=== PATIENT | female | born 1960 | race Caucasian/White ===

== ENCOUNTER 2021-01-04 10:51 | Emergency (ER) | payer BC, SELFPAY ==
[2021-01-04 11:45] VITALS: BP 146/81; PULSE 71; RESP 18; TEMP 36.8; O2SAT 98; BMI 37.2
--- NOTE | 2021-01-04 12:26 | HMH.EDUTC ---
[facility] [place] Disposition Clinical Impression: Encounter for laboratory testing for COVID-19 virus Disposition: Home, Self-Care Condition on Discharge: Good Instructions: DI for COVID-19 (Suspected or Confirmed ), Coronavirus Disease 2019, Preventing the Spread of Coronavirus Discharge Instructions Additional Instructions: *Monitor Temp, Over the counter Motrin or Tylenol as directed/as needed Tylenol every 4 hours and Motrin every 6 hours (as long as your family doctor has told you that you can take it) for fever or pain. and straight to ER if unable to lower temp less than 101.0 after medication given Follow up IMMEDIATELY for new or worsening symptoms or no Noticeable improvement over the next 48-72 hours. 911 for difficulty breathing or swallowing You were tested for today for COVID19 your test result should be back in the next 24-48 hours, you may call to the [facility] to see if your test results are back in the next 48 hours [phone] [facility] hours are 9am-9pm You was given a handout with instructions for Self Quarantine and Self isolation for while you wait on test results and what to do if they are positive If you are positive the Health Dept will be contacting you also Make sure to take your Vitamins Vit. C Vit D and Zinc if you can take them Referrals: Kala Maya APRN [Primary Care Provider] - As needed Time of Disposition: 12:31 Medical Decision Making - Ha Inquiry Pt receiving controlled substance: No Ha was queried for this patient: No Vital Signs: 01/04/21 11:45 Temperature 98.2 F Temperature Source Oral Pulse Rate [Right Brachial] 71 Respiratory Rate 18 Blood Pressure [Right Arm] 146/81 H Blood Pressure Mean [Right Arm] 102 Blood Pressure Source [Right Arm] Automatic Cuff Blood Pressure Position [Right Arm] Sitting 02 Sat by Pulse Oximetry 98 Oxygen Delivery Method Room Air Orders (Tests/Meds): ORDERS Category Date Time Status Covid-19 Nasal PCR ([facility]) Routine Lab 01/04/21 11:51 Ordered [facility] HPI - General Stated complaint: Covid test Time Seen by Provider: 01/04/21 12:26 Mode of Arrival: Ambulatory Source of Information: Patient Limitations: No Limitations Description of Symptoms (Recalled from Triage Doc. by RN): PATIENT NEEDS COVID TEST BEFORE COLONOSCOPY HEENT Symptoms (Recalled from RN notes): No Resp Symptoms (Recalled from RN notes): No Skin Symptoms (Recalled from RN notes): No MS Symptoms (Recalled from RN notes): No Functional Status (Recalled from RN notes): WNL - History of Present Illness Provider Complaint: Patient states that she has to have a COVID test for a procedure that she is having done Denies any symptoms Denies exposure - Related Data Home Medications Medication Instructions Recorded Confirmed Cholecalciferol (Vitamin D3) 10 mcg PO DAILY 01/01/21 01/01/21 [Vitamin D3] Fluoxetine HCl 40 mg PO DAILY 01/01/21 01/01/21 Levothyroxine Sodium 100 mcg PO DAILY 01/01/21 01/01/21 [Levothyroxine 100mcg (0.1MG) Tab] Rosuvastatin Calcium [Crestor 10mg 10 mg PO DAILY 01/01/21 01/01/21 Tablets] hydroCHLOROthiazide [HCTZ 12.5mg 12.5 mg PO DAILY 01/01/21 01/01/21 cap] Allergies Allergy/AdvReac Type Severity Reaction Status Date / Time codeine Allergy Verified 01/01/21 09:39 Penicillins Allergy Verified 01/01/21 09:39 - Worker's Comp Is this a Worker's Comp case?: No [facility] History - Hepatitis A Screen Drug use history?: No High risk sexual behaviors?: No History of sexually transmitted infection?: No Currently employed?: No Childcare worker?: No Do you have indoor plumbing?: Yes Do you have electricity?: Yes Attestation statement:: This patient has been screened for Hepatitis A risk factors. I have reviewed the patient's past medical history: Yes Medical History: Denies:: Cancer, Diabetes Mellitus Type 1, Diabetes Mellitus Type 2, Internal Pacemaker, MRSA Laterality Cases: Bilateral: Tonsillectomy Other Surgeries: No:
[2021-01-04 12:31] VITALS: BP 146/81; PULSE 71; RESP 18; TEMP 36.8; O2SAT 98
== END 2021-01-04 12:33 | disposition home or self-care (01) ==
PROVIDERS: Emergency Provider Nurse Practitioner; PCP Nurse Practitioner Family
DX: Z11.52 Encounter for screening for COVID-19 (principal)
CPT/HCPCS: 99202; G0463; U0003

== ENCOUNTER 2021-01-06 10:00 | Day surgery (SDC) | payer BC, SELFPAY ==
[2021-01-01 09:41] VITALS: BMI 40.1
[2021-01-06 10:15] VITALS: BP 156/68; PULSE 80; RESP 20; TEMP 36.4; O2SAT 96
[2021-01-06 11:31] VITALS: O2SAT 98
--- NOTE | 2021-01-06 12:09 | P.PCN_ITS ---
[facility] Procedure Note Procedure Note:: Colonoscopy Procedure Report: Colonoscopy with cold snare polypectomy Endoscopist: Se Medeiros II, MD Referring physician: ALEXIS Arshad Date of Procedure: January 06, 2021 Equipment: Olympus 190 variable stiffness pediatric colonoscope Sedation: MAC sedation Indication: Mrs. Green is a 60-year-old female who is here for routine screening colonoscopy. She did have a colonoscopy at age 49 with me that was normal. She does take combined MiraLAX plus Metamucil daily. She reports no abdominal pain, in her bowel habits or rectal bleeding. She reports no family history of colon cancer. Procedure: Prior to the procedure, a history and physical exam was performed, and patient's medications and allergies were reviewed. The risks, benefits and alternatives of the sedation and procedure were discussed with the patient. All questions were answered and informed consent was obtained. The patient was brought to the procedure room. Patient identification and proposed procedure were verified by the physician and the nurse. The patient was placed in a left lateral decubitus position and the scope was passed under direct vision. Throughout the procedure, the patient's blood pressure, pulse, and oxygen saturations were monitored continuously. The colonoscopy was accomplished without difficulty. The patient tolerated the procedure well. Findings: On digital rectal examination there was normal rectal tone. There were no external hemorrhoids. The colonoscope was introduced through the anal canal to the rectum and advanced to the cecum. The ileocecal valve and appendiceal orifice were identified. The scope was advanced a short distance into the ileum which appeared grossly normal. The scope was then withdrawn into the colon. There were 4 diminutive colon polyps (ascending x1 (4 mm), descending x2 (3 and 4 mm) and sigmoid x1 (4 mm)) which were all removed via cold snare polypectomy. The remaining cecum, ascending, transverse, descending, sigmoid and rectum were grossly normal. There were no mucosal abnormalities identified. Upon retroflexion within the rectum there were grade 1-2 internal hemorrhoids.The preparation was excellent throughout with [place] Preparation Score of 9. The cecal time was 12 minutes. Impression: 1. Diminutive colonic polyps x4 2. Grade 1-2 internal hemorrhoids Plan: I will follow up the polyp pathology and recommend repeat colonoscopy again in 5 years based upon the adenomatous polyp histology. I would encourage bulking fiber supplementation on a long-term daily maintenance basis.
[2021-01-06 12:10] VITALS: BP 99/63; PULSE 68; RESP 18; TEMP 36.8; O2SAT 93
--- NOTE | 2021-01-06 12:18 | HMH.ANESCL ---
[facility] Anesthesia Checklist - Structural Data Admitted From: Home Planned Operative Procedure/s: colonoscopy Consent for Planned Operative Procedure(s) Verified: Yes - Airway Assessment C-Spine Mobility Assessed: Yes TMJ Mobility Assessed: Yes Dentition: Good Dentition - Neurological Assessment Level of Consciousness: Awake, Alert, Appropriate - Anesthesia Plan Anesthesia Risk discussed: Yes Anesthesia Plan: Verified ASA Class: II Anesthesia Type: MAC [facility] History I have reviewed the patient's past medical history: Yes Medical History: Reports:: Hyperlipidemia, Hypertension Denies:: Cancer, Diabetes Mellitus Type 1, Diabetes Mellitus Type 2, Internal Pacemaker, MRSA, Seizures *Have you ever received a pneumonia vaccine?: No *Have you received a flu vaccine this season?: No Anesthesia experience/problems:: none Laterality Cases: Bilateral: Tonsillectomy Other Surgeries: No: Pacemaker Amputation: No - *Social History Last grade of school completed: Advanced degree Smoking Status: Never smoker Alcohol Intake: never Substance Use Type: denies use *Occupational Status:: employed Housing: house Household Members: spouse *Travel in the last 8 weeks: None Family Hx:: Cancer
[2021-01-06 12:20] VITALS: BP 122/75; PULSE 69; RESP 18; O2SAT 97
[2021-01-06 12:30] VITALS: BP 106/61; PULSE 70; RESP 18; O2SAT 97
[2021-01-06 12:55] VITALS: BP 124/68; PULSE 64; RESP 18; O2SAT 98
== END 2021-01-06 12:58 | disposition home or self-care (01) ==
LOC: OUTP 10:02
PROVIDERS: PCP Nurse Practitioner Family; Visit Provider Internal Medicine Gastroenterology
PROC: 0DJD8ZZ Inspection of Lower Intestinal Tract, Via Natural or Artificial Opening Endoscopic (ICD-10-PCS; CPT 45378; principal; 2021-01-06 11:00)
DX: Z12.11 Encounter for screening for malignant neoplasm of colon (principal); K63.5 Polyp of colon; K64.0 First degree hemorrhoids; E78.5 Hyperlipidemia, unspecified; I10 Essential (primary) hypertension; Z80.9 Family history of malignant neoplasm, unspecified; Z88.0 Allergy status to penicillin; Z88.6 Allergy status to analgesic agent; Z79.899 Other long term (current) drug therapy
CPT/HCPCS: 45385

== ENCOUNTER 2025-01-18 09:01 | Outpatient (CLI) | payer MEDICARE, BC, SELFPAY ==
--- NOTE | 2025-01-18 09:05 | XR_ITS ---
FINAL REPORT CLINICAL HISTORY: SCREENING COMPARISON: None FINDINGS: Using L1-4, the bone mineral density of the spine is 1.373 g/cm2, corresponding to T-score of 3.0, within normal limits. Using the left forearm, the bone mineral density of the one third is 0.657 g/cm2, corresponding to a T-score of -0.6, within normal limit. Using the right forearm, the bone mineral density of the one third is 0.752 g/cm2, corresponding to a T-score of 1.0, within normal limits. NOTE: T-score: Standard deviation compared with peak bone mass of young adult mean. *Following the recommendations of the International Society of Bone densitometry, classification of hip BMD is based on the lower of two T-scores; total hip or femoral neck. IMPRESSION: Normal bone mineral density of the lumbar spine and hips. Reviewed, Interpreted and Dictated by Hernando Villeda MD Transcribed by Lorri Mijares Authenticated and [facility]
--- OUTSIDE RECORDS SUMMARY | 2025-01-18 09:05 | XMS_ITS | Clinical Summary ---
Author Organization [facility] Address [address] [place] [address] Care Team Providers Care Gelatin Maker Utility Name Role Phone Loren Cuellar BROOKE Primary Care Provider + [phone] Allergies Active Allergy Reactions Criticality Noted Date Comments Codeine Other (See Comments),Rash Low 06/18/2021 Penicillins Other (See Comments) ,Rash,Unknown (See Comments) Low 10/12/2012 Povidone Iodine Rash Low 05/21/2021 Medications levothyroxine (SYNTHROID, LEVOTHROID) 100 MCG tablet Take 1 tablet by mouth Daily. 07/23/2022 Active hydroCHLOROthia zide (MICROZIDE) 12.5 MG capsule Take 1 capsule by mouth Daily. 07/23/2022 Active FLUoxetine (PROzac) 40 MG capsule 1 capsule Daily. 07/23/2022 Active guaiFENesin (Mucinex) 600 MG 12 hr tablet Take 2 tablets by mouth 2 (Two) Times a Day. 180 tablet 1 10/07/2023 Active rosuvastatin (CRESTOR) 10 MG tabletIndicatio ns:Hyperlipidem ia LDL goal <100 Take 1 tablet by mouth Daily. 30 tablet 10/07/2023 Active cholecalciferol (VITAMIN D3) 10 MCG (400 UNIT) tablet Take 1 tablet by mouth Daily. 05/01/2024 Active ondansetron (ZOFRAN) 4 MG tablet TAKE ONE (1) TABLET BY MOUTH EVERY EIGHT HOURS NEEDED FOR NAUSEA AND VOMITING FOR NAUSEA AND VOMITING 03/14/2024 Active Active Problems Problem Noted Date Diagnosed Date Pre-diabetes 01/06/2024 Assessment & Plan (01/06/2024 5:09 PM EDT): She reports that she has been told prediabetes in the past. She has been working hard on cutting back on her snacks. Her weight is down 10 pounds since her last visit Plan: Continue low sugar and low carbohydrate diet and avoid snacking Check hemoglobin A1c Morbid obesity with BMI of 40.0-44.9, adult 09/15 Assessment & Plan (01/06/2024 5:11 PM EDT): BMI in September was 41.7. BMI today is 40.1 noted that she has had a 10 pound weight loss in 3 months. She is praised for her weight loss. She is encouraged to continue lowering calories, lowering carbohydrates, watching portions and avoiding snacks. 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 Assessment & Plan (10/07/2023 3:06 PM EDT): Patient's (Body mass index is 41.71 kg/m .) indicates that they are morbidly/severely obese (BMI > 40 or > 35 with obesity - related health condition) with health conditions that include obstructive sleep apnea, hypertension, and dyslipidemias . Weight is unchanged. BMI is above average; BMI management plan is completed. We discussed low calorie, low carb based diet program, portion control, and increasing exercise. She is retiring in a couple weeks. 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 Hypersomnia, unspecified 10/07/2023 Assessment & Plan (10/07/2023 3:20 PM EDT): She reports that she has low energy off of PAP therapy. She reports she is sleepy but she does not normally take a nap. Plan: Restart PAP therapy Recheck symptoms on new CPAP GERTRUDE (obstructive sleep apnea) 10/08/2022 Assessment & Plan (05/25/2024 4:46 PM EST): She has a known history of mild sleep apnea. Baseline AHI is 11. She is on CPAP therapy. Download is reviewed with good control and good compliance. She is benefiting from PAP therapy. We plan to continue PAP therapy. Prescription to DME of patient's choice for CPAP supplies Discussed GERTRUDE treatment options and possibility of restudy with weight loss. Her last home study was in 2018 and her weight was near 290 pounds. Plan follow-up in about 6 months for her known history of GERTRUDE. We will give consideration to restudy if her weight loss has been persistent and she has been able to maintain weight loss. Assessment & Plan (01/06/2024 5:10 PM EDT): Baseline AHI is 11. This is mild sleep apnea. She is on a new CPAP . She reports she has been using it more than 1 month but less than 3 months. She is on CPAP. Download reviewed with good control and good compliance. She is benefiting from PAP therapy. We plan to continue PAP therapy. She has a current prescription for her supplies at the DME of her choice. Assessment & Plan (10/07/2023 3:08 PM EDT): Baseline AHI is 11. This is mild sleep apnea. In the past she has been on CPAP therapy but she stopped using her PAP device about 6 months ago. She wishes to resume CPAP therapy. Noted PAP device is greater than 5 years old and she wishes to have it replaced. Plan: New auto CPAP 8 to 16 cm and CPAP supplies to the DME of patient's choice Follow-up GERTRUDE for 31 to 90-day compliance download or when been on new CPAP about 2 months. Assessment & Plan (10/08/2022 1:41 PM EDT): Baseline AHI is 11. This is mild sleep apnea. She is on CPAP therapy. Download is reviewed with good control and good compliance. She is benefiting from PAP therapy and we plan to continue PAP therapy. Prescription for CPAP supplies sent to the DME of her choice. Mild concentric left ventricular hypertrophy (LV H) 10/08/2022 Assessment & Plan (10/07/2023 3:05 PM EDT): Seen on echo 07/22/2021. Plan: Encouraged weight loss Encouraged to resume CPAP therapy and treat sleep apnea Encouraged to monitor blood pressure closely and continue good blood pressure control Essential hypertension 10/08/2022 Assessment & Plan (10/07/2023 3:01 PM EDT): Blood pressure today 124/62. Blood pressure is well-controlled. She only takes hydrochlorothiazide for her blood pressure and edema. Assessment & Plan (10/08/2022 1:41 PM EDT): Reports that she takes the hydrochlorothiazide for blood pressure and edema. She reports that this edema is stable. Vitamin D deficiency 10/08/2022 Assessment & Plan (10/08/2022 1:41 PM EDT): She reports a vitamin D deficiency in the past. Reports that she takes a vitamin D supplement. She has had no recent labs. Plan vitamin D level with routine labs. Post-surgical hypothyroidism 10/08/2022 Assessment & Plan (10/08/2022 1:40 PM EDT): She reports she has had no recent thyroid levels. She has been compliant with her levothyroxine daily. She reports her symptoms are stable. Plan a TSH with her routine labs. Hyperlipidemia LDL goal <100 10/08/2022 Assessment & Plan (10/07/2023 3:02 PM EDT): She is on rosuvastatin 10 mg nightly. She has been out of the medication x 2 months in September 2022. So when she completed her last labs in October she had been off of meds. She reports she has been faithful since then and has not missed any of her medication. Plan: Continue rosuvastatin 10 mg nightly Check annual fasting lipids in the month of October. She plans to do with her PCP office primary care Assessment & Plan (10/08/2022 1:40 PM EDT): She ran out of her statin about 2 months ago. She did not call for refill. She has not completed recent labs. Orders to check fasting lipid profile and prescription sent to her pharmacy for rosuvastatin 10 mg nightly. Family History Medical History Relation Name Comments Heart attack Father Anxiety disorder Sister Relation Name Status Comments Father (Age 70) Mother (Age 85) Covid Sister Alive Social History Tobacco Use Types Packs/Day Years Used Date Smoking Tobacco: Never Passive Smoke Exposure: Past Smokeless Tobacco: Never Alcohol Use Standard Drinks/Week Comments Never 0 (1 standard drink = 0.6 oz pur e alcohol) Comments Unknown Sex and Gender Information Value Date Recorded Sex Assigned at Not on file Legal Sex Female 10:20 AM EDT Gender Identity Not on file Sexual Orientation Not on file Last Filed Vital Signs Vital Sign Reading Time Taken Comments Blood Pressure 126/68 05/25/2024 10:24 AM EST Pulse 76 05/25/2024 10:24 AM EST Temperature - - Respiratory Rate - - Oxygen Saturation 97% 05/25/2024 10:24 AM EST Inhaled Oxygen Concentration - - Weight 119 kg (263 lb) 05/25/2024 10:24 AM EST Height 177.8 cm (5' 10 ) 05/25/2024 10:24 AM EST Body Mass Index 37.74 05/25/2024 10:24 AM EST Plan of Treatment Health Maintenance Due Date Last Done Comments DXA SCAN 1959 TDAP/TD VACCINES (1 - Tdap) 1978 COLOGUARD 02/09/2004 COLON CANCER SCREENING 5 YEA R SIGMOIDOSCOPY 02/09/2004 COLONOSCOPY 02/09/2004 COLORECTAL CANCER SCREENING 02/09/2004 CT COLONOGRAPHY 02/09/2004 FECAL OCCULT BLOOD TEST 02/09/2004 FIT Testing (1 year) 02/09/2004 Pneumococcal Vaccine 50+ (1 of 1 - PCV) 2009 ZOSTER VACCINE (1 of 2) 2009 ANNUAL WELLNESS VISIT 10/08/2022 HEPATITIS C SCREENING 10/08/2022 LIPID PANEL 11/11/2023 11/10/2022 COVID-19 Vaccine (6 - 2024-2 6 season) 2025 03/11/2022, 10/21/2021, 05/29/2021, Additional history exists INFLUENZA VACCINE 02/14/2025 03/02/2023, , 04/15/2021, Additional history exists MAMMOGRAM 12/29/2025 12/30/2023, 12/15, 05/25/2022, Additional history exists Procedures Procedure Name Priority Date/Time Associated Diagnosis Comments LIPID PANEL Routine 11/10/2022 Hyperlipidemia LDL goal <100 from Last 3 Months or Most Recently Relevant to Health Maintenance Results * Lipid Panel (11/10/2022) Blood Earline Maya [employer] [facility] BLOOD ORDERABLES nal Result [facility]
[address] [place] [address], [place] [phone] from Last 3 Months or Most Recently Relevant to Health Maintenance Insurance MEDICARE A & B [facility] Care Teams Gelatin Maker Utility Relationship Specialty Start Date End Date Loren Cuellar APRN [address] [place] [address] [place] [address] PCP - General Family Medicine 10/07/23
--- OUTSIDE RECORDS SUMMARY | 2025-01-18 09:05 | XMS_ITS | Clinical Summary ---
Author Organization [facility] Address [address] [place] [address] Care Team Providers Care Travel Agent Name Role Phone PoloLoren BROOKE Primary Care Provider [phone] Allergies Active Allergy Reactions Criticality Noted Date Comments Codeine Rash Low 06/18/2021 Penicillins Rash Low 10/12/2012 Povidone Iodine Rash Low 05/21/2021 Medications FLUoxetine (PROzac) 40 MG capsule Take 1 capsule (40 mg) by mouth 1 (one) time each day in the morning. 1 Active rosuvastatin (Crestor) 10 MG tablet Take 1 tablet (10 mg) by mouth 1 (one) time each day. 1 Active hydroCHLOROthia zide (Microzide) 12.5 MG capsule Take 1 capsule (12.5 mg) by mouth 1 (one) time each day. 1 Active calcium citrate-vitamin D 250-100 MG-UNIT tablet Take 1 tablet by mouth 1 (one) time each day in the morning. Active estradiol (Estrace) 0.1 MG/GM vaginal creamIndication s:Vaginal atrophy Apply a pea-sized amount vaginally nightly for 2 weeks, then 3x weekly ongoing. 42.5 g 5 4 Active Active Problems Problem Noted Date Diagnosed Date Unspecified disorder of eyelid 04/02/2023 Morbid obesity with body mass index (BMI) of 40. 0 or higher 03/04/2022 Gastroesophageal reflux disease without esophagi tis 01/10/2018 Stress incontinence, female 01/10/2018 Urinary incontinence in female 12/13/2017 Atrophic vaginitis 11/18/2016 Urgency incontinence 11/18/2016 Vitamin B12 deficiency 11/18/2016 Laryngopharyngeal reflux (LPR) 07/11/2014 Urgency of urination 03/13/2013 Depression 10/12/2012 Essential (primary) hypertension 10/12/2012 Hyperlipidemia 10/12/2012 Immunizations Immunization Administration Dates Next Due DTaP 10/12/2012 Influenza, injectable, quadrivalent, preservativ e free 03/15/2013 Influenza, seasonal, injectable 03/03/2012 Family History Medical History Relation Name Comments Diabetes Father Heart disease Father Lung cancer Father Heart disease Mother Valvular heart disease Mother Relation Name Status Comments Father Mother Social History Tobacco Use Types Packs/Day Years Used Date Smoking Tobacco: Never Smokeless Tobacco: Never Alcohol Use Standard Drinks/Week Comments Yes 0 (1 standard drink = 0.6 oz pur e alcohol) 2x year PHQ-2 Answer Date Recorded Patient Health Questionnaire-2 Score 0 11/29/2023 PHQ-2A Answer Date Recorded PHQ-2 Score 0 11/23/2022 Comments No Sex and Gender Information Value Date Recorded Sex Assigned at Not on file Legal Sex Female 7:56 PM EDT Gender Identity Not on file Sexual Orientation Not on file Last Filed Vital Signs Vital Sign Reading Time Taken Comments Blood Pressure 118/80 11/29/2023 1:04 PM EDT Pulse 69 11/29/2023 1:04 PM EDT Temperature 36.9 C (98.5 F) 11/29/2023 1:04 PM EDT Respiratory Rate 18 11/29/2023 1:04 PM EDT Oxygen Saturation 99% 11/29/2023 1:04 PM EDT Inhaled Oxygen Concentration - - Weight 130 kg (286 lb) 12/30/2023 12:40 PM EDT Height 177.8 cm (5' 10 ) 12/30/2023 12:40 PM EDT Body Mass Index 41.04 12/30/2023 12:40 PM EDT Plan of Treatment Upcoming Encounters Date Type Department Care Team (Late st Contact Info) Description 02/27/2025 4:00 PM EDT Appointment [facility] Eliseo Masters [address] [id number] Health Maintenance Due Date Last Done Comments [facility]-Bone Density Scan 1959 [facility]-Hepatitis C Screening 1959 [facility]-/Child/Adol SDOH Screenings 1959 [facility]- SDOH Screenings 1977 [facility]-Adult SDOH Screenings 1977 CT Colonography 02/09/2004 Colonoscopy 02/09/2004 FIT-DNA 02/09/2004 FIT 02/09/2004 FOBT 02/09/2004 Sigmoidoscopy 02/09/2004 [facility]-Colorectal Cancer Screening 02/09/2004 [facility]-Pneumococcal Vaccine: 50+ Years (1 of 1 - PCV) 2009 [facility]-Zoster Vaccines (1 of 2) 2009 [facility]-RSV Vaccine: 60+ Years or (1 - Risk 60-74 years 1-dose series) 2019 [facility]-DTaP,Tdap,and Td Vaccines (2 - Tdap) 10/12/2022 10/12/2012 [id number]-14 Vaccine ( season) 2024 03/11/2022, 10/21/2021, 05/29/2021, Additional history exists [facility]-Depression Screening 11/28/2024 11/29/2023 [facility]-Influenza Vaccine (#1) 01/15/202503/02, 03/26/2022, 04/15/2021, Additional history exists [facility]-Breast Cancer Screening 12/29/202512/15, 05/25/2022, 05/25/2022, Additional history exists [facility]-Pap Smear 11/28/2026 11/29/2023, 030 07/2019, 11/18/2016, Additional history exists [facility]-Cervical Cancer Screening 11/28/2028 [facility]-HPV/Cotest 11/28/2028 11/29/2023, 030 07/2019, 07/18/2019, Additional history exists [facility]-Obesity Intervention Completed 024, 06/04/2023, 04/02/2023, Additional history exists HPV Vaccines Aged Out No longer eligi ble based on patient's age to complete this topic [facility]-HIB Vaccines Aged Out No longer e ligible based on patient's age to complete this topic [facility]-Hepatitis A Vaccines Aged Out No longer eligible based on patient's age to complete this topic [facility]-IPV Vaccines Aged Out No longer e ligible based on patient's age to complete this topic [facility]-Rotavirus Vaccines Aged Out No lo nger eligible based on patient's age to complete this topic Medical Devices Implanted Type Area [employer] Supervisor Device Identifier Shelf Expiration Date Model / Serial / Lot Joint Joint Bilateral: Hip Procedures Procedure Name Priority Date/Time Associated Diagnosis Comments MAMMOGRAPHY BREAST SCREENING TOMOSYNTHESIS BILATERAL Routine 12/30/2023 12:49 PM EDT Visit for screening mammogram PAP TEST - CYTOLOGY Routine 11/29/2023 1 :22 PM EDT Well woman exam Screening for malignant neoplasm of cervix from Last 3 Months or Most Recently Relevant to Health Maintenance Results * Mammography Breast Screening Tomosynthesis Bilateral (12/30/2023 12:49 PM EDT) Anatomical Region Laterality Modality Breast Bilateral Mammography Impressions 12/31/2023 1:20 PM EDT No mammographic evidence of malignancy. BI-RADS CATEGORY: Overall: 1 - Negative RECOMMENDATION: - Routine Screening Mammogram in 1 Year. Patient Lifetime Risk Score of Breast Malignancy: 4.7% This risk assessment is calculated using the Pallavi Risk Assessment model which may underestimate the lifetime risk of breast malignancy. COMMUNICATION: Computer-aided detection (CAD) and tomosynthesis were utilized by the radiologist in the interpretation of this examination. The results and recommendations will be sent to the patient in a printed lay language version of the imaging report. Narrative 12/31/2023 1:20 PM EDT EXAM: Mammography Breast Screening with Tomosynthesis REASON FOR EXAM: Screening Mammogram HISTORY: Patient is 63 y.o. Hormone history includes control (5 years) and hormone replacement therapy (estradiol vaginal cream). COMPARISON STUDIES: Compared to: 09/11/2014 Mammography Breast Screening Tomosynthesis Bilateral at [facility] 11/18/2016 Mammography Breast Screening Tomosynthesis Bilateral at [facility] 12/13/2017 Mammography Breast Screening Tomosynthesis Bilateral at [facility] 12/25/2019 Mammography Breast Screening Tomosynthesis Bilateral at [facility] 03/18/2021 Mammography Breast Screening Tomosynthesis Bilateral at [facility] 05/25/2022 Mammography Breast Screening Tomosynthesis Bilateral at [facility] BREAST COMPOSITION: The breasts are almost entirely fatty. FINDINGS: There are no suspicious masses, calcifications, or areas of architectural distortion. us Gustavo Ron MD IMG BI PROCEDURES Final Re sult * Pap Test (11/29/2023 1:22 PM EDT) Case Report Cytology Case: [id number] Authorizing Provider: Patricia Crowe APRN Collected: 11/29/2023 1322 Ordering Location: Medical Office Building Received: 11/29/2023 1322 Obstetrics and Gynecology First Screen: Padmaja Tyler Specimen: ThinPrep Pap Test, Liquid-Based Cervical/Vaginal 12/06/2023 3:35 PM EDT [facility] Interpretation NEGATIVE FOR INTRAEPITHELIAL LESION OR MALIGNANCY 12/06/2023 3:35 PM EDT [facility] at 1535 EDT Specimen Adequacy Satisfactory for evaluation; transformation zone component cannot be definitely identified due to the presence of atrophy or other hormonal changes. Partially obscuring inflammation present. Slide scanned and imaged by ThinPrep Imaging System with manual review of all selected morin. 12/06/2023 3:35 PM EDT [facility] Cervical cytology is a screening test primarily for squamous cancers and precursors and has associated false negative and positive results. New technologies such as liquid based sampling may decrease but will not eliminate all false negative results. Regular screening and follow-up of unexplained clinical signs and symptoms are recommended to minimize false negative results. Please see the ASCCP website (www.asccp.org)fo r followup recommendations. If HPV testing was requested, correlation with the results is suggested (please call Microbiology at [phone] for results). 12/06/2023 3:35 PM EDT [facility] Menstrual Status Post-Menopausal 3:35 PM EDT [facility] History of Hysterectomy Not Applicable 12/06/2023 3:35 PM EDT [facility] Contraceptive History Not Applicable 12/06/2023 3:35 PM EDT [facility] Screening Type Routine Screen 2023 3:35 PM EDT [facility] High Risk? No 12/06/2023 3:35 PM EDT [facility] HPV Testing Requested? Request HPV Testing Regardless of Pap Test Findings 12/06/2023 3:35 PM EDT [facility] Previous Cancer History No 12/06/2023 3:35 PM EDT [facility] Clinical Information Z01.419 - Well woman exam [ICD-10-CM] Z12.4 - Screening for malignant neoplasm of cervix [ICD-10-CM] 12/06/2023 3:35 PM EDT [facility] Swab Vaginal and cervical cytologic material / Unknown Non-blood Collection / Unknown 11/29/2023 1:22 PM EDT 11/29/2023 1:22 PM EDT Patricia Crowe [facility] CYTOLOGY ORDERABLES Final Result [facility] [address] [place] [id number] from Last 3 Months or Most Recently Relevant to Health Maintenance Insurance [employer] Care Teams Travel Agent Relationship Specialty Start Date End Date Loren Cuellar APRN [id number] [id number] [facility] - General 12/30/23
== END 2025-01-18 23:59 | disposition home or self-care (01) ==
LOC: RAD 09:02
PROVIDERS: PCP Nurse Practitioner Family; Visit Provider Nurse Practitioner Family
DX: M81.0 Age-related osteoporosis without current pathological fracture (principal)
CPT/HCPCS: 77080